=== PATIENT | female | born 1985 | race African-American/Black ===

== ENCOUNTER 2020-12-06 20:24 | Emergency (ER) | payer OTHER ==
[2020-12-06 20:31] VITALS: BP 170/100; TEMP 98.3; BMI 36.1
[2020-12-06] MEDS ORDERED: DEXAMETHASONE SOD PHOSPHATE 10 MG/1 ML VIAL IM ONE (21:47)
[2020-12-06 22:00] VITALS: PULSE 78
[2020-12-06] MEDS ORDERED: DEXAMETHASONE SOD PHOSPHATE 10 MG/1 ML VIAL ONE (22:01)
== END 2020-12-06 22:26 | disposition home or self-care (01) ==
LOC: JERFT 20:24
PROC: 3E0233Z Introduction of Anti-inflammatory into Muscle, Percutaneous Approach (ICD-10-PCS; principal; 2020-12-06)
DX: T78.40XA Allergy, unspecified, initial encounter (principal)
CPT/HCPCS: 99284-25; J1100

== ENCOUNTER 2023-05-07 19:42 | Inpatient (IN) | payer OTHER ==
[2023-05-07 19:51] VITALS: BMI 33.2
[2023-05-07] MEDS ORDERED: ONDANSETRON 4 MG/2 ML VIAL IVPUSH ONE (21:45)
[2023-05-07] MEDS ORDERED: ACETAMINOPHEN 1000 MG/100 ML BAG IVPB ONE (21:46)
[2023-05-07] MEDS ORDERED: ONDANSETRON 4 MG/2 ML VIAL ONE (21:49)
[2023-05-07] MEDS ORDERED: ACETAMINOPHEN INJECTION 100 ML IVPB ONE (21:49)
[2023-05-07] MEDS ORDERED: LACTATED RINGERS SOLUTION 1000 ML INFUS.BAG IV ONE (22:08)
[2023-05-07 22:13] LABS: BASO % 0.2 % (0-2.0); EOS % 0.4 % (0-4.5); HEMATOCRIT 30.7 % (32.4-45.2); HEMOGLOBIN 10.7 GM/dL (10.7-15.3); LYMPH % 12.6 % (8-40); MCH 29.5 pg (25.7-33.7); MCHC 34.8 g/dl (32.0-36.0); MEAN CELL VOLUME 84.7 fl (80-96); MONO % 8.5 % (3.8-10.2); NEUT % 78.3 % (42.8-82.8); PLATELET COUNT 247 10^3/uL (134-434); RBC 3.63 M/mm3 (3.60-5.2); RDW 14.6 % (11.6-15.6); WHITE BLOOD COUNT 8.1 K/mm3 (4.0-10.0)
[2023-05-07 22:19] LABS: INR 1.35 (0.83-1.09); PROTHROMBIN TIME (PATIENT) 15.6 SEC (9.7-13.0)
[2023-05-07 22:22] LABS: ACTIVATED PTT 32.3 SECONDS (25.2-36.5)
[2023-05-07 22:49] LABS: CHLORIDE 94 mmol/L (98-107); SODIUM 131 mmol/L (136-145)
[2023-05-07 22:52] LABS: ALBUMIN 2.6 g/dl (3.4-5.0); CO2 30 mmol/L (21-32); GLUCOSE,RANDOM 106 mg/dL (74-106); LIPASE 43 U/L (73-393)
[2023-05-07 22:55] LABS: CREATININE 0.8 mg/dL (0.55-1.3); SGOT/AST 17 U/L (15-37); SGPT/ALT 8 U/L (13-61)
[2023-05-07 22:57] LABS: BILIRUBIN,TOTAL 0.5 mg/dL (0.2-1); TOT PROT 9.1 g/dl (6.4-8.2)
[2023-05-07 22:58] LABS: ALK PHOS 90 U/L (45-117)
[2023-05-07 22:59] LABS: ANION GAP 7 mmol/L (4-13); BLOOD UREA NITROGEN 2.6 mg/dL (7-18); POTASSIUM 2.8 mmol/L (3.5-5.1)
[2023-05-07] MEDS ORDERED: amLODIPine BESYLATE 10 MG TABLET (FP) PO ONE (22:59)
[2023-05-07] MEDS ORDERED: AZITHROMYCIN IVPB 500 MG in DEXTROSE 5%-WATER - 250 ML IVPB ONE (23:00)
[2023-05-07] MEDS ORDERED: POTASSIUM CHLORIDE TABS 20 MEQ TABLET.ER (FP) PO ONE (23:00)
[2023-05-07 23:17] LABS: MAGNESIUM 1.8 mg/dL (1.8-2.4)
[2023-05-07] MEDS ORDERED: POTASSIUM CHLORIDE ORAL LIQUID 20 MEQ/15 ML ONE (23:20)
[2023-05-07] MEDS ORDERED: amLODIPine BESYLATE 10 MG TABLET (FP) ONE (23:20)
[2023-05-07] MEDS ORDERED: CEFTRIAXONE 1 GM/50 ML BAG ONE (23:20)
[2023-05-07] MEDS ORDERED: AZITHROMYCIN IVPB 500 MG/250 ML BAG IVPB ONE (23:56)
[2023-05-08] MEDS ORDERED: KCL 10 MEQ IVPB 10 MEQ/100 ML INFUS.BAG IVPB ONE ×4 (00:25→04:01)
[2023-05-08] MEDS: KCL 10 MEQ IVPB 10 MEQ/100 ML INFUS.BAG IVPB SCH ×3 (01:59→04:04)
[2023-05-08] MEDS ORDERED: amLODIPine BESYLATE 5 MG TABLET (FP) PO SCH (07:00)
[2023-05-08] MEDS ORDERED: ACETAMINOPHEN 1000 MG/100 ML BAG IVPB PRN (08:25)
[2023-05-08] MEDS ORDERED: ACETAMINOPHEN INJECTION 100 ML IVPB ONE (09:08)
[2023-05-08 09:51] VITALS: RESP 18
[2023-05-08] MEDS ORDERED: ENOXAPARIN NA (PORCINE) 40 MG/0.4 ML DISP.SYRIN SQ SCH (10:00)
[2023-05-08 11:07] LABS: CHLORIDE 101 mmol/L (98-107); POTASSIUM 4.1 mmol/L (3.5-5.1); SODIUM 137 mmol/L (136-145)
[2023-05-08 11:12] LABS: CALCIUM 8.3 mg/dL (8.5-10.1)
[2023-05-08 11:13] LABS: ALBUMIN 2.4 g/dl (3.4-5.0); GLUCOSE,RANDOM 85 mg/dL (74-106)
[2023-05-08 11:14] LABS: ANION GAP 7 mmol/L (4-13); CO2 28 mmol/L (21-32)
[2023-05-08 11:15] LABS: BILIRUBIN,TOTAL 0.5 mg/dL (0.2-1); MAGNESIUM 1.9 mg/dL (1.8-2.4)
[2023-05-08 11:16] LABS: CHOLESTEROL 84 mg/dL (50-200); PHOSPHOROUS 1.9 mg/dL (2.5-4.9)
[2023-05-08 11:17] LABS: CREATININE 0.7 mg/dL (0.55-1.3); IRON SERUM 20 ug/dL (50-175); LDL CHOLESTEROL (ONLY SJRH) 52 mg/dL (5-100); SGOT/AST 16 U/L (15-37); SGPT/ALT 9 U/L (13-61)
[2023-05-08 11:18] LABS: TOTAL IRON BINDING CAPACITY 233 ug/dL (250-450)
[2023-05-08 11:19] LABS: ALK PHOS 80 U/L (45-117); HDL CHOLESTEROL 24 mg/dL (40-60); TOT PROT 8.7 g/dl (6.4-8.2)
[2023-05-08 11:28] LABS: BLOOD UREA NITROGEN 2.8 mg/dL (7-18)
[2023-05-08] MEDS ORDERED: LACTATED RINGERS SOLUTION 1,000 ML/1,000 ML INFUS.BAG IV SCH (12:15)
[2023-05-08 15:32] VITALS: BP 108/73; PULSE 102; TEMP 98.9
[2023-05-08] MEDS ORDERED: LACTATED RINGERS SOLUTION 1000 ML INFUS.BAG IV ONE (21:45)
[2023-05-08] MEDS ORDERED: LISINOPRIL 10 MG TABLET PO SCH (22:00)
== END 2023-05-08 15:50 | disposition home or self-care (01) | DRG 139 ==
LOC: JER 19:42 → JERBED 05-08 00:54
PROVIDERS: ADMIT Internal Medicine; ATTEND Internal Medicine
DX: J18.9 Pneumonia, unspecified organism (principal); I10 Essential (primary) hypertension; J45.909 Unspecified asthma, uncomplicated; E87.6 Hypokalemia; E66.9 Obesity, unspecified; Z68.33 Body mass index [BMI] 33.0-33.9, adult; D64.9 Anemia, unspecified
CPT/HCPCS: 0241U-QW; 36415; 71045-TC-FY; 80053; 80061; 82728; 83540; 83550; 83690; 83735; 84100; 84155; 84165; 84443; 84466; 84484; 84703; 85025; 85610; 85730; 93005; 93010; 99285-25

== ENCOUNTER 2023-05-31 15:43 | Inpatient (IN) | payer OTHER ==
[2023-05-31 16:12] VITALS: BMI 33.2
[2023-05-31] MEDS ORDERED: ALBUTEROL SO4 2.5/IPRATROPIUM 0.5 INH SOL 3 ML VIAL.NEB. NEB ONE (17:03)
[2023-05-31] MEDS: ALBUTEROL SO4 2.5/IPRATROPIUM 0.5 INH SOL 3 ML VIAL.NEB. NEB SCH ×4 (17:04→17:58)
[2023-05-31] MEDS ORDERED: LACTATED RINGERS SOLUTION 1000 ML INFUS.BAG IV ONE (17:40)
[2023-05-31] MEDS ORDERED: methylPREDNISolone NA SUCC 125 MG/2 ML VIAL IVPB ONE (17:42)
[2023-05-31 17:43] LABS: BASO % 0.2 % (0-2.0); HEMATOCRIT 33.5 % (32.4-45.2); LYMPH % 12.6 % (8-40); MCHC 32.8 g/dl (32.0-36.0); MEAN CELL VOLUME 85.4 fl (80-96); MEAN PLT VOLUME 9.2 fl (7.5-11.1); MONO % 5.8 % (3.8-10.2); NEUT % 81.4 % (42.8-82.8); PLATELET COUNT 181 10^3/uL (134-434); RBC 3.92 M/mm3 (3.60-5.2); RDW 16.4 % (11.6-15.6); WHITE BLOOD COUNT 8.8 K/mm3 (4.0-10.0)
[2023-05-31 17:50] LABS: INR 1.44 (0.83-1.09); PROTHROMBIN TIME (PATIENT) 16.6 SEC (9.7-13.0)
[2023-05-31 17:53] LABS: ACTIVATED PTT 35.6 SECONDS (25.2-36.5)
[2023-05-31] MEDS ORDERED: methylPREDNISolone NA SUCC 125 MG/2 ML VIAL ONE (17:59)
[2023-05-31 18:02] LABS: POTASSIUM 3.2 mmol/L (3.5-5.1)
[2023-05-31] MEDS ORDERED: POTASSIUM CHLORIDE TABS 20 MEQ TABLET.ER (FP) PO ONE ×2 (18:04→19:57)
[2023-05-31 18:06] LABS: CALCIUM 8.8 mg/dL (8.5-10.1)
[2023-05-31 18:07] LABS: ALBUMIN 3.1 g/dl (3.4-5.0)
[2023-05-31 18:09] LABS: TOT PROT 9.3 g/dl (6.4-8.2)
[2023-05-31 18:10] LABS: BILIRUBIN,TOTAL 0.9 mg/dL (0.2-1); CREATININE 0.8 mg/dL (0.55-1.3)
[2023-05-31 18:21] LABS: MAGNESIUM 1.6 mg/dL (1.8-2.4)
[2023-05-31] MEDS ORDERED: MAGNESIUM SULFATE IN WATER 2 GM/50 ML IVPB IVPB ONE ×2 (18:54→19:58)
[2023-05-31] MEDS ORDERED: AZITHROMYCIN IVPB 500 MG in DEXTROSE 5%-WATER - 250 ML IVPB ONE (20:24)
[2023-05-31] MEDS ORDERED: PIPERACILLIN/TAZOB 3.375 GM 3.375 GM in DEXTROSE 5%-WATER - 50 ML IVPB ONE ×2 (20:24→21:16)
[2023-05-31] MEDS ORDERED: AZITHROMYCIN IVPB 500 MG/250 ML BAG IVPB ONE (21:16)
[2023-05-31] MEDS ORDERED: ALBUTEROL SO4 2.5/IPRATROPIUM 0.5 INH SOL 3 ML VIAL.NEB. NEB PRN (22:19)
[2023-05-31] MEDS ORDERED: SODIUM CHLORIDE FOR INHALATION 3 ML VIAL.NEB IH ONE (23:04)
[2023-06-01] MEDS: methylPREDNISolone NA SUCC 40 MG/1 ML VIAL IVPUSH SCH ×2 (02:02→09:50)
[2023-06-01] MEDS ORDERED: methylPREDNISolone NA SUCC 40 MG/1 ML VIAL ONE (03:24)
[2023-06-01 04:10] LABS: EPI CELLS 28 /uL (0-25.1); HCG,QUALITATIVE URINE Negative; HYALINE CASTS 0 /uL (0-3.1); PH,URINE 5.5 (5.0-8.0); URINE APPEARANCE CLEAR; URINE BACTERIA 131 /uL (0-1359); URINE BILIRUBIN NEGATIVE (NEGATIVE); URINE COLOR YELLOW; URINE GLUCOSE (UA) NEGATIVE (NEGATIVE); URINE KETONE TRACE (NEGATIVE); URINE LEUK ESTERASE NEGATIVE (NEGATIVE); URINE NITRITE NEGATIVE (NEGATIVE); URINE PROTEIN NEGATIVE (NEGATIVE); URINE RBC 186 /uL (0-23.9); URINE UROBILINOGEN 0.2 mg/dL (0.2-1.0); URINE WBC 17 /uL (0-25.8)
[2023-06-01] MEDS ORDERED: ALBUTEROL SO4 2.5/IPRATROPIUM 0.5 INH SOL 3 ML VIAL.NEB. NEB SCH (08:00)
[2023-06-01] MEDS: amLODIPine BESYLATE 5 MG TABLET (FP) PO SCH (09:50)
[2023-06-01] MEDS: LOSARTAN POTASSIUM 25 MG TABLET PO SCH (09:50)
[2023-06-01] MEDS ORDERED: FLU VACCINE (FLULAVAL) PF 60 MCG/0.5 ML SYRINGE 2023-2024 IM ONE (10:00)
[2023-06-01] MEDS ORDERED: PNEUMOC 20-VAL CONJ-DIP CRM/PF 0.5 ML SYRINGE IM ONE (10:00)
[2023-06-01] MEDS: ENOXAPARIN NA (PORCINE) 40 MG/0.4 ML DISP.SYRIN SQ SCH (10:04)
[2023-06-01 11:05] LABS: HEMATOCRIT 35.3 % (32.4-45.2); HEMOGLOBIN 11.1 GM/dL (10.7-15.3); MCH 27.7 pg (25.7-33.7); MCHC 31.4 g/dl (32.0-36.0); MEAN PLT VOLUME 8.6 fl (7.5-11.1); PLATELET COUNT 190 10^3/uL (134-434); RBC 4.01 M/mm3 (3.60-5.2); RDW 16.6 % (11.6-15.6)
[2023-06-01 11:28] LABS: POTASSIUM 4.1 mmol/L (3.5-5.1)
[2023-06-01 12:40] LABS: CALCIUM 9.8 mg/dL (8.5-10.1)
[2023-06-01 12:41] LABS: ALBUMIN 3.1 g/dl (3.4-5.0); MAGNESIUM 2.6 mg/dL (1.8-2.4)
[2023-06-01 12:43] LABS: CREATININE 0.8 mg/dL (0.55-1.3); PHOSPHOROUS 1.7 mg/dL (2.5-4.9)
[2023-06-01 12:45] LABS: BILIRUBIN,TOTAL 0.7 mg/dL (0.2-1); TOT PROT 9.8 g/dl (6.4-8.2)
[2023-06-01 14:06] LABS: HIV INTERPRETATION NEGATIVE (NEGATIVE)
[2023-06-01] MEDS: ACETAMINOPHEN 325 MG TABLET (FP) PO PRN (17:54)
[2023-06-01] MEDS ORDERED: SODIUM PHOSPHATE - 30 MM in SODIUM CHLORIDE 250 ML IVPB ONE (20:00)
[2023-06-01] MEDS: PIPERACILLIN/TAZOB 4.5 GM 4.5 GM in DEXTROSE 5%-WATER 100 ML IVPB SCH (20:12)
[2023-06-01] MEDS: ALBUTEROL SO4 2.5/IPRATROPIUM 0.5 INH SOL 3 ML VIAL.NEB. NEB SCH (20:56)
[2023-06-01] MEDS: AZITHROMYCIN IVPB 500 MG/250 ML BAG IVPB SCH (20:59)
[2023-06-02] MEDS: PIPERACILLIN/TAZOB 4.5 GM 4.5 GM in DEXTROSE 5%-WATER 100 ML IVPB SCH ×4 (01:35→17:54)
[2023-06-02] MEDS: ALBUTEROL SO4 2.5/IPRATROPIUM 0.5 INH SOL 3 ML VIAL.NEB. NEB SCH ×4 (08:45→20:11)
[2023-06-02 09:46] LABS: HEMATOCRIT 28.9 % (32.4-45.2); HEMOGLOBIN 9.6 GM/dL (10.7-15.3); LYMPH % 13.9 % (8-40); MCH 28.5 pg (25.7-33.7); MCHC 33.2 g/dl (32.0-36.0); MONO % 6.1 % (3.8-10.2); PLATELET COUNT 157 10^3/uL (134-434); RBC 3.37 M/mm3 (3.60-5.2); RDW 16.9 % (11.6-15.6); WHITE BLOOD COUNT 8.4 K/mm3 (4.0-10.0)
[2023-06-02] MEDS ORDERED: SODIUM CHLORIDE FOR INHALATION 3 ML VIAL.NEB IH ONE (09:47)
[2023-06-02 10:08] LABS: POTASSIUM 3.8 mmol/L (3.5-5.1)
[2023-06-02 10:16] LABS: ALBUMIN 2.6 g/dl (3.4-5.0); BLOOD UREA NITROGEN 11.1 mg/dL (7-18); CALCIUM 8.8 mg/dL (8.5-10.1); MAGNESIUM 2.6 mg/dL (1.8-2.4)
[2023-06-02 10:18] LABS: CREATININE 0.7 mg/dL (0.55-1.3)
[2023-06-02 10:19] LABS: BILIRUBIN,TOTAL 0.6 mg/dL (0.2-1); PHOSPHOROUS 3.4 mg/dL (2.5-4.9)
[2023-06-02] MEDS: LOSARTAN POTASSIUM 25 MG TABLET PO SCH (10:44)
[2023-06-02] MEDS: predniSONE 20 MG TABLET (UD) PO SCH (10:44)
[2023-06-02] MEDS: ENOXAPARIN NA (PORCINE) 40 MG/0.4 ML DISP.SYRIN SQ SCH (10:45)
[2023-06-02] MEDS: amLODIPine BESYLATE 5 MG TABLET (FP) PO SCH (10:45)
[2023-06-02] MEDS: AZITHROMYCIN IVPB 500 MG/250 ML BAG IVPB SCH (10:45)
[2023-06-02] MEDS: ACETAMINOPHEN 325 MG TABLET (FP) PO PRN (13:26)
[2023-06-02] MEDS ORDERED: AZITHROMYCIN IVPB 500 MG in DEXTROSE 5%-WATER - 250 ML IVPB SCH (19:01)
[2023-06-02 23:06] LABS: SPECKLED PATTERN >1:1280 (.)
[2023-06-03] MEDS: PIPERACILLIN/TAZOB 4.5 GM 4.5 GM in DEXTROSE 5%-WATER 100 ML IVPB SCH ×3 (01:20→18:30)
[2023-06-03] MEDS ORDERED: SODIUM CHLORIDE FOR INHALATION 3 ML VIAL.NEB IH ONE (06:00)
[2023-06-03] MEDS: ALBUTEROL SO4 2.5/IPRATROPIUM 0.5 INH SOL 3 ML VIAL.NEB. NEB SCH ×4 (07:45→20:13)
[2023-06-03 09:03] LABS: BASO % 0.2 % (0-2.0); EOS % 0.1 % (0-4.5); HEMATOCRIT 30.8 % (32.4-45.2); HEMOGLOBIN 9.9 GM/dL (10.7-15.3); LYMPH % 33.9 % (8-40); MCH 28.1 pg (25.7-33.7); MCHC 32.3 g/dl (32.0-36.0); MEAN CELL VOLUME 86.9 fl (80-96); MEAN PLT VOLUME 9.2 fl (7.5-11.1); MONO % 6.1 % (3.8-10.2); NEUT % 59.7 % (42.8-82.8); PLATELET COUNT 183 10^3/uL (134-434); RBC 3.54 M/mm3 (3.60-5.2); RDW 16.9 % (11.6-15.6); WHITE BLOOD COUNT 4.5 K/mm3 (4.0-10.0)
[2023-06-03 09:31] LABS: POTASSIUM 3.3 mmol/L (3.5-5.1)
[2023-06-03] MEDS: amLODIPine BESYLATE 5 MG TABLET (FP) PO SCH (10:15)
[2023-06-03] MEDS: LOSARTAN POTASSIUM 25 MG TABLET PO SCH (10:15)
[2023-06-03] MEDS: predniSONE 20 MG TABLET (UD) PO SCH (10:15)
[2023-06-03] MEDS: PANTOPRAZOLE 40 MG TABLET PO SCH (10:15)
[2023-06-03] MEDS: AZITHROMYCIN IVPB 500 MG/250 ML BAG IVPB SCH (10:16)
[2023-06-03] MEDS: ENOXAPARIN NA (PORCINE) 40 MG/0.4 ML DISP.SYRIN SQ SCH (10:17)
[2023-06-03 10:26] LABS: CALCIUM 8.5 mg/dL (8.5-10.1)
[2023-06-03 10:27] LABS: ALBUMIN 2.6 g/dl (3.4-5.0); BLOOD UREA NITROGEN 8.7 mg/dL (7-18); MAGNESIUM 2.3 mg/dL (1.8-2.4)
[2023-06-03 10:30] LABS: BILIRUBIN,TOTAL 0.5 mg/dL (0.2-1); CREATININE 0.7 mg/dL (0.55-1.3); PHOSPHOROUS 2.4 mg/dL (2.5-4.9)
[2023-06-03] MEDS ORDERED: POTASSIUM PHOSPHATE 15 MM in SODIUM CHLORIDE 250 ML IVPB ONE (13:00)
[2023-06-03 21:08] LABS: IG G QN IMMUNOGLOBULIN 3529 mg/dL (586-1602); IGG SUBCLASS 1 2547 mg/dL (248-810); IGG SUBCLASS 2 359 mg/dL (130-555); IGG SUBCLASS 3 135 mg/dL (15-102)
[2023-06-04] MEDS: PIPERACILLIN/TAZOB 4.5 GM 4.5 GM in DEXTROSE 5%-WATER 100 ML IVPB SCH ×3 (01:16→18:03)
[2023-06-04] MEDS: ALBUTEROL SO4 2.5/IPRATROPIUM 0.5 INH SOL 3 ML VIAL.NEB. NEB SCH ×4 (07:40→20:20)
[2023-06-04] MEDS: amLODIPine BESYLATE 5 MG TABLET (FP) PO SCH (09:11)
[2023-06-04] MEDS: LOSARTAN POTASSIUM 25 MG TABLET PO SCH (09:11)
[2023-06-04] MEDS: predniSONE 20 MG TABLET (UD) PO SCH (09:11)
[2023-06-04] MEDS: PANTOPRAZOLE 40 MG TABLET PO SCH (09:11)
[2023-06-04] MEDS: ENOXAPARIN NA (PORCINE) 40 MG/0.4 ML DISP.SYRIN SQ SCH (09:12)
[2023-06-05] MEDS: PIPERACILLIN/TAZOB 4.5 GM 4.5 GM in DEXTROSE 5%-WATER 100 ML IVPB SCH ×3 (01:11→17:24)
[2023-06-05] MEDS: ALBUTEROL SO4 2.5/IPRATROPIUM 0.5 INH SOL 3 ML VIAL.NEB. NEB SCH ×4 (08:32→19:52)
[2023-06-05 09:25] LABS: HEMOGLOBIN 9.9 GM/dL (10.7-15.3); MEAN CELL VOLUME 87.4 fl (80-96); PLATELET COUNT 216 10^3/uL (134-434); RBC 3.55 M/mm3 (3.60-5.2); RDW 16.9 % (11.6-15.6); WHITE BLOOD COUNT 5.4 K/mm3 (4.0-10.0)
[2023-06-05 09:43] LABS: POTASSIUM 3.6 mmol/L (3.5-5.1)
[2023-06-05 09:46] LABS: CALCIUM 8.3 mg/dL (8.5-10.1)
[2023-06-05 09:47] LABS: BLOOD UREA NITROGEN 8.8 mg/dL (7-18)
[2023-06-05 09:49] LABS: CREATININE 0.7 mg/dL (0.55-1.3)
[2023-06-05] MEDS: PANTOPRAZOLE 40 MG TABLET PO SCH (09:53)
[2023-06-05] MEDS: amLODIPine BESYLATE 5 MG TABLET (FP) PO SCH (09:53)
[2023-06-05] MEDS: LOSARTAN POTASSIUM 25 MG TABLET PO SCH (09:53)
[2023-06-05] MEDS: ENOXAPARIN NA (PORCINE) 40 MG/0.4 ML DISP.SYRIN SQ SCH (09:53)
[2023-06-05] MEDS: predniSONE 20 MG TABLET (UD) PO SCH (09:53)
[2023-06-05 11:37] LABS: ANISOCYTOSIS 0; MACROCYTOSIS 0
[2023-06-05 16:08] LABS: IMMUNOGLOBULIN D 17.72 mg/dL (<14.11)
[2023-06-05] MEDS ORDERED: PIPERACILLIN/TAZOBACTAM 4.5 GM VIAL IVPB ONE (17:22)
[2023-06-06] MEDS: PIPERACILLIN/TAZOB 4.5 GM 4.5 GM in DEXTROSE 5%-WATER 100 ML IVPB SCH ×3 (01:19→17:50)
[2023-06-06] MEDS: ALBUTEROL SO4 2.5/IPRATROPIUM 0.5 INH SOL 3 ML VIAL.NEB. NEB SCH ×4 (08:15→21:00)
[2023-06-06 09:24] LABS: HEMATOCRIT 30.8 % (32.4-45.2); HEMOGLOBIN 10.4 GM/dL (10.7-15.3); MCH 28.9 pg (25.7-33.7); MCHC 33.6 g/dl (32.0-36.0); MEAN CELL VOLUME 85.9 fl (80-96); MEAN PLT VOLUME 8.6 fl (7.5-11.1); PLATELET COUNT 234 10^3/uL (134-434); RBC 3.58 M/mm3 (3.60-5.2); RDW 16.1 % (11.6-15.6); WHITE BLOOD COUNT 5.4 K/mm3 (4.0-10.0)
[2023-06-06 09:43] LABS: POTASSIUM 3.4 mmol/L (3.5-5.1)
[2023-06-06 09:51] LABS: CALCIUM 8.8 mg/dL (8.5-10.1)
[2023-06-06 09:52] LABS: ALBUMIN 2.5 g/dl (3.4-5.0); BLOOD UREA NITROGEN 9.3 mg/dL (7-18)
[2023-06-06 09:54] LABS: CREATININE 0.6 mg/dL (0.55-1.3); PHOSPHOROUS 3.3 mg/dL (2.5-4.9)
[2023-06-06 09:56] LABS: BILIRUBIN,TOTAL 0.3 mg/dL (0.2-1); TOT PROT 7.6 g/dl (6.4-8.2)
[2023-06-06 10:05] LABS: ANISOCYTOSIS 1+; MACROCYTOSIS 0
[2023-06-06] MEDS: ENOXAPARIN NA (PORCINE) 40 MG/0.4 ML DISP.SYRIN SQ SCH (10:36)
[2023-06-06] MEDS: PANTOPRAZOLE 40 MG TABLET PO SCH (10:37)
[2023-06-06] MEDS: predniSONE 20 MG TABLET (UD) PO SCH (10:37)
[2023-06-06] MEDS: LOSARTAN POTASSIUM 25 MG TABLET PO SCH (10:37)
[2023-06-06] MEDS: amLODIPine BESYLATE 5 MG TABLET (FP) PO SCH (10:37)
[2023-06-06 16:08] LABS: ATYPICAL pANCA <1:20 titer (Neg:<1:20); C-ANCA <1:20 titer (Neg:<1:20)
[2023-06-06] MEDS ORDERED: PIPERACILLIN/TAZOBACTAM 4.5 GM VIAL IVPB ONE (17:31)
[2023-06-06 23:29] VITALS: RESP 18
[2023-06-07] MEDS: PIPERACILLIN/TAZOB 4.5 GM 4.5 GM in DEXTROSE 5%-WATER 100 ML IVPB SCH ×3 (01:15→17:23)
[2023-06-07] MEDS: ALBUTEROL SO4 2.5/IPRATROPIUM 0.5 INH SOL 3 ML VIAL.NEB. NEB SCH ×4 (07:50→19:42)
[2023-06-07 09:50] LABS: HEMATOCRIT 30.2 % (32.4-45.2); HEMOGLOBIN 9.5 GM/dL (10.7-15.3); MCH 27.5 pg (25.7-33.7); MCHC 31.5 g/dl (32.0-36.0); MEAN CELL VOLUME 87.4 fl (80-96); MEAN PLT VOLUME 8.5 fl (7.5-11.1); PLATELET COUNT 280 10^3/uL (134-434); RBC 3.45 M/mm3 (3.60-5.2); RDW 16.8 % (11.6-15.6); WHITE BLOOD COUNT 5.2 K/mm3 (4.0-10.0)
[2023-06-07 10:01] LABS: POTASSIUM 3.5 mmol/L (3.5-5.1)
[2023-06-07 10:19] LABS: CALCIUM 8.8 mg/dL (8.5-10.1)
[2023-06-07 10:20] LABS: ALBUMIN 2.5 g/dl (3.4-5.0); BLOOD UREA NITROGEN 10.5 mg/dL (7-18); MAGNESIUM 2.4 mg/dL (1.8-2.4)
[2023-06-07 10:23] LABS: CREATININE 0.6 mg/dL (0.55-1.3)
[2023-06-07 10:24] LABS: BILIRUBIN,TOTAL 0.2 mg/dL (0.2-1); TOT PROT 7.5 g/dl (6.4-8.2)
[2023-06-07 10:42] LABS: ANISOCYTOSIS 2+; MACROCYTOSIS 0
[2023-06-07] MEDS: ENOXAPARIN NA (PORCINE) 40 MG/0.4 ML DISP.SYRIN SQ SCH (10:57)
[2023-06-07] MEDS: PANTOPRAZOLE 40 MG TABLET PO SCH (10:57)
[2023-06-07] MEDS: predniSONE 20 MG TABLET (UD) PO SCH (10:57)
[2023-06-07] MEDS: LOSARTAN POTASSIUM 25 MG TABLET PO SCH (10:57)
[2023-06-07] MEDS: amLODIPine BESYLATE 5 MG TABLET (FP) PO SCH (10:58)
[2023-06-08] MEDS: PIPERACILLIN/TAZOB 4.5 GM 4.5 GM in DEXTROSE 5%-WATER 100 ML IVPB SCH ×2 (02:28→09:22)
[2023-06-08] MEDS: ALBUTEROL SO4 2.5/IPRATROPIUM 0.5 INH SOL 3 ML VIAL.NEB. NEB SCH ×3 (07:15→15:47)
[2023-06-08 08:38] LABS: HEMATOCRIT 28.7 % (32.4-45.2); HEMOGLOBIN 9.1 GM/dL (10.7-15.3); MCHC 31.9 g/dl (32.0-36.0); MEAN CELL VOLUME 87.8 fl (80-96); MEAN PLT VOLUME 8.8 fl (7.5-11.1); PLATELET COUNT 261 10^3/uL (134-434); RBC 3.26 M/mm3 (3.60-5.2); RDW 16.5 % (11.6-15.6); WHITE BLOOD COUNT 5.1 K/mm3 (4.0-10.0)
[2023-06-08] MEDS: LOSARTAN POTASSIUM 25 MG TABLET PO SCH (09:24)
[2023-06-08] MEDS: PANTOPRAZOLE 40 MG TABLET PO SCH (09:24)
[2023-06-08] MEDS: amLODIPine BESYLATE 5 MG TABLET (FP) PO SCH (09:24)
[2023-06-08] MEDS: predniSONE 20 MG TABLET (UD) PO SCH (09:24)
[2023-06-08] MEDS: ENOXAPARIN NA (PORCINE) 40 MG/0.4 ML DISP.SYRIN SQ SCH (09:24)
[2023-06-08 09:29] LABS: ALBUMIN 2.4 g/dl (3.4-5.0); BLOOD UREA NITROGEN 11.4 mg/dL (7-18); CREATININE 0.6 mg/dL (0.55-1.3)
[2023-06-08 09:31] LABS: BILIRUBIN,TOTAL 0.3 mg/dL (0.2-1); TOT PROT 7.2 g/dl (6.4-8.2)
[2023-06-08 09:32] LABS: CALCIUM 8.6 mg/dL (8.5-10.1)
[2023-06-08 09:33] LABS: MAGNESIUM 2.2 mg/dL (1.8-2.4)
[2023-06-08 11:09] LABS: ANISOCYTOSIS 0; HELMET CELLS 0; HOWELL-JOLLY BODIES 0; MACROCYTOSIS 0; OVALOCYTE 0; ROULEAU 0; SICKELED CELLS 0; TARGET CELLS 0; TEAR DROP CELLS 0; TOXIC GRANULATION 0
[2023-06-08] MEDS ORDERED: AMOX TR/POT CLAV 875MG/125MG TABLETS (FP) PO ONE (15:00)
[2023-06-08 15:15] VITALS: TEMP 98.3
[2023-06-08 15:24] VITALS: BP 158/83; PULSE 75
== END 2023-06-08 16:46 | disposition home or self-care (01) | DRG 142 ==
LOC: JER 15:43 → JERBED 19:47 → J5S 06-01 04:23 → J8W 06-01 12:08
PROVIDERS: ADMIT Internal Medicine; ATTEND Nurse Practitioner Family
DX: J84.10 Pulmonary fibrosis, unspecified (principal); B44.9 Aspergillosis, unspecified; J18.9 Pneumonia, unspecified organism; E87.1 Hypo-osmolality and hyponatremia; J45.909 Unspecified asthma, uncomplicated; R09.02 Hypoxemia; I10 Essential (primary) hypertension; R76.8 Other specified abnormal immunological findings in serum; J98.4 Other disorders of lung
CPT/HCPCS: 0241U-QW; 36415; 71045-TC-FY; 71275-TC; 80048; 80053; 81003; 82784; 82785; 82787; 83520; 83735; 83883; 84100; 84484; 84703; 85025; 85027; 85610; 85651; 85730; 86038; 86140; 86160; 86200; 86225; 86235; 86256; 86431; 86480; 87040; 87070; 87081; 87086; 87102; 87116; 87205; 87206; 87210; 87305; 87389; 87449; 87556; 87651; 93005; 93010; 94010; 94640; 94761; 99285-25; Q9967